=== PATIENT | male | born 1950 | race Caucasian/White ===

== ENCOUNTER 2023-12-30 07:06 | Emergency (ER) | payer OTHER, MEDICARE ==
[2023-12-30 07:22] LABS: BASOPHILS ABSOLUTE AUTO 0.04 K/uL (0.00-0.10); BASOPHILS PERCENT AUTO 0.6 % (0.1-1.3); EOSINOPHILS ABSOLUTE AUTO 0.33 K/uL (0.00-0.40); EOSINOPHILS PERCENT AUTO 4.7 % (0.0-5.4); HEMATOCRIT 43.4 % (38.4-49.7); HEMOGLOBIN 15.2 g/dL (12.9-16.9); IMMATURE GRAN ABSOLUTE AUTO 0.07 K/uL (0.00-0.23); LYMPHOCYTES ABSOLUTE AUTO 2.01 K/uL (0.8-3.3); LYMPHOCYTES PERCENT AUTO 28.9 % (11.4-47.7); MEAN CORPUSCULAR HEMOGLOBIN 32.2 pg (31.6-35.5); MEAN CORPUSCULAR VOLUME 91.9 fL (81.4-99.0); MONOCYTES ABSOLUTE AUTO 0.87 K/uL (0.20-0.90); MONOCYTES PERCENT AUTO 12.5 % (3.3-12.6); NEUTROPHILS ABSOLUTE AUTO 3.64 K/uL (1.0-7.6); NEUTROPHILS PERCENT AUTO 52.3 % (40.0-78.1); PLATELET COUNT,PLT 221 K/uL (130-375); RED BLOOD CELL COUNT 4.72 M/uL (4.14-5.76)
[2023-12-30] MEDS: Ketorolac 30 MG/ML SDV IVPUSH ONE (07:30)
[2023-12-30 07:37] LABS: CALCIUM 8.7 mg/dL (8.5-10.1); EST CRCL DRUG DOSING (CG) 66.92 mL/min; POTASSIUM,K 3.4 mmol/L (3.6-5.2)
[2023-12-30 07:38] LABS: ANION GAP 13.4 mmol/L (5.0-14.0)
[2023-12-30] MEDS: Sodium Chloride 0.9% 10 ML Syringe FLUSH ONE (08:35)
[2023-12-30] MEDS: Iopamidol 612 MG/ML 100 ML Bottle IV ONE (08:35)
[2023-12-30] MEDS: Sodium Chloride 0.9% 100 ML IV ONE (08:35)
== END 2023-12-30 09:37 | disposition home or self-care (01) ==
LOC: JP.ED 07:06
DX: S30.1XXA Contusion of abdominal wall, initial encounter (principal); S50.812A Abrasion of left forearm, initial encounter; S80.811A Abrasion, right lower leg, initial encounter; V89.2XXA Person injured in unspecified motor-vehicle accident, traffic, initial encounter
CPT/HCPCS: 36415; 74177; 80048; 85025; 96374; 99284; J1885; J3490; Q9967